=== PATIENT | male | born 1955 | race Caucasian/White ===

== ENCOUNTER → 2017-12-11 16:10 | Outpatient (CLI) | payer BC ==
[~2017-12-11 16:10] MED LIST: VIBRAMYCIN 100100 MG PO
[2018-01-16 06:33] VITALS: BMI 35.3
== END | disposition home or self-care (01) ==
LOC: D.US 16:10 → EDSEX 16:10 → D.US 17:00
DX: N45.3 Epididymo-orchitis (principal)

== ENCOUNTER 2018-01-16 05:35 | Day surgery (SDC) | payer BC ==
[~2018-01-16] VITALS: Ht 182.9 cm; Wt 117.9 kg
--- NOTE | ~2018-01-16 | OP ---
PATIENT NAME: CHRISTOPH ROSS MEDICAL RECORD: [id number] :53 LOCATION:[facility] ADMISSION DATE: SURGEON: ANDREW GARCIA MD DATE OF OPERATION: 01/16/2018 SURGEON: Andrew Garcia MD ANESTHESIA: TIVA by Fantasma Terrell. 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 PROCEDURE: Cystoscopy. FINDINGS: No urethral strictures. Obstructive prostate with bilateral lateral lobe hyperplasia and a small median lobe. Bilateral single ureteral orifices. No bladder tumors. ESTIMATED BLOOD LOSS: None. CLINICAL HISTORY: This is a 62-year-old man who is complaining of difficulty voiding. He also has episodes of recurrent UTIs and recurrent left epididymal orchitis. He has a history of gonorrhea times 2 while he was in the [place] He was treated at that time. However, due to the possibility of gonorrheal stricture forming he came today for cystoscopy and possible direct vision internal urethrotomy. He is not allergic to any medications. He was given Ancef 2 grams IV consulting solution manager to the OR. DESCRIPTION OF PROCEDURE: The patient was given IV sedation. He was placed in dorsal lithotomy position and prepped and draped. A 21-[place] cystoscope with 30-degree lens was used for visualization. There was absolutely no stricture at all. The site of obstruction is an obstructive prostate. There are no bladder tumors. The bladder was then emptied through the scope sheath and then the scope was removed. I will discuss treatment for BPH with the patient in the near future. TRANSINT:[id number] Voice Confirmation ID: [id number] DOCUMENT ID: [id number] ANDREW GARCIA MD at 1020 CC: [id number] DICTATION DATE: 01/16/18910 CHARGE MASTER ANALYST: 01/16/18 09 REG [facility] [address] [id number]
[2018-01-16 06:33] VITALS: BP 133/82; Ht 182.9 cm; Wt 117.9 kg
== END 2018-01-16 10:35 | disposition home or self-care (01) ==
LOC: D.OPS 05:35 → D.PAN 08:45 → D.OPS 10:35
DX: N40.1 Benign prostatic hyperplasia with lower urinary tract symptoms (principal); N13.8 Other obstructive and reflux uropathy; Z01.812 Encounter for preprocedural laboratory examination

== ENCOUNTER 2018-02-25 05:00 | Day surgery (SDC) | payer BC ==
[~2018-02-25] VITALS: Ht 182.9 cm; Wt 117.9 kg
--- NOTE | ~2018-02-25 | OP ---
PATIENT NAME: CHRISTOPH ROSS MEDICAL RECORD: [id number] :53 LOCATION:[facility] ADMISSION DATE: SURGEON: KIP GARCIA MD DATE OF OPERATION: 02/25/2018 SURGEON: Kip Garcia MD ANESTHESIA: TIVA by Asa Vizcarra MD PREOPERATIVE DIAGNOSIS: Obstructive benign prostatic hypertrophy. PROCEDURES: Cystoscopy and UroLift implant times 6 units. FINDINGS: Obstructive lateral lobes of the prostate. 40 gram prostate on FERNY. IPSS equals 14 and quality of life score is 5. BLOOD LOSS: None. CLINICAL HISTORY: This is a 62-year-old male with obstructive voiding symptoms. He previously had a history of gonorrhea and I performed cystoscopy on him back in January, thinking that he may have a urethral stricture causing his obstructive voiding symptoms. Instead he has no urethral stricture. He does have an obstructive BPH with enlarged lateral lobes. On FERNY, his prostate is 40 grams in size. In discussing treatment options with him, he decided to proceed with the UroLift device implantation. He is not allergic to any medications. He was given Ancef associate relations specialist to the OR. His preoperative IPSS was 14 and quality of life score was 5. DESCRIPTION OF PROCEDURE: The patient was given IV sedation. He was then placed into dorsal lithotomy position. The UroLift scope was used with the obturator to visualize the site of obstruction. No bladder tumors were seen. Moving back about 2 cm distal to the bladder neck, we inserted in the anterior lateral lobe a UroLift device. The first device lost the clip and therefore the patient has a total of 5 actual implants and 1 lost device. This was also repeated on the left lateral lobe where the second device did hold. A similar clip was placed on the right lateral lobe near the bladder neck. We then placed 2 more devices near the level of the verumontanum distally in the prostate. These devices also held well. At the end of the procedure, there was a good channel visible from the verumontanum level all the way through the bladder neck. The bladder was then emptied through the scope and the patient was taken to the preoperative holding area. TRANSINT:[id number] Voice Confirmation ID: [id number] DOCUMENT ID: [id number] KIP GARCIA MD at 1136 CC: [id number] DICTATION DATE: 02/25/18 9029 KIER BOILER: 12/18/18 1043 [facility] [place] 02/25/[address] [address] [place] [address]
[~2018-02-25 05:00] MED LIST changes: +VIAGRA100 MG PO
[2018-02-25 06:20] VITALS: BP 133/81; Ht 182.9 cm; Wt 117.9 kg
== END 2018-02-25 09:00 | disposition home or self-care (01) ==
LOC: D.OPS 05:00
DX: N40.1 Benign prostatic hyperplasia with lower urinary tract symptoms (principal); N13.8 Other obstructive and reflux uropathy; Z01.812 Encounter for preprocedural laboratory examination

== ENCOUNTER 2018-02-26 04:48 | Emergency (ER) | payer BC ==
[~2018-02-26] VITALS: Ht 182.9 cm; Wt 117.9 kg
[2018-02-26 04:51] VITALS: Ht 182.9 cm; Wt 117.9 kg
[2018-02-26 05:44] LABS: APPEARANCE HAZY (CLEAR); BILIRUBIN NEGATIVE (NEGATIVE); COLOR YELLOW (YELLOW); GLUCOSE NEGATIVE (NEGATIVE); KETONE NEGATIVE (NEGATIVE); NITRITE NEGATIVE (NEGATIVE); PROTEIN NEGATIVE (NEGATIVE); UROBILINOGEN NORMAL (NORMAL)
[2018-02-26 05:45] LABS: BACTERIA FEW /hpf (NONE SEEN); RED CELLS - URINE 0-5 /hpf (0-5); WHITE CELLS - URINE NSEEN /hpf (0-5)
[2018-02-26 06:08] VITALS: BP 127/78
== END 2018-02-26 06:09 | disposition home or self-care (01) ==
LOC: D.ER 04:48
PROVIDERS: Family Medicine
DX: R33.9 Retention of urine, unspecified (principal)

== ENCOUNTER → 2018-03-31 10:52 | Outpatient (CLI) | payer BC ==
[2018-02-26 04:51] VITALS: BMI 35.3
== END | disposition home or self-care (01) ==
LOC: D.RAD 10:52
DX: M54.6 Pain in thoracic spine (principal)

== ENCOUNTER → 2018-06-16 10:13 | Outpatient (CLI) | payer BC ==
[2018-02-26 04:51] VITALS: BMI 35.3
== END | disposition home or self-care (01) ==
LOC: D.MRI 06-09 10:00
PROVIDERS: ATTEND Family Medicine
DX: M54.16 Radiculopathy, lumbar region (principal)

== ENCOUNTER → 2019-09-01 11:13 | Outpatient (CLI) | payer BC ==
[2018-02-26 04:51] VITALS: BMI 35.3
== END | disposition home or self-care (01) ==
LOC: D.MRI 11:13
PROVIDERS: ATTEND Clinical Nurse Specialist Family Health
DX: M25.562 Pain in left knee (principal)